=== PATIENT | female | born 1970 | race Hispanic/Latino ===

== ENCOUNTER 2020-01-01 10:14 | Emergency (ER) | payer SELFPAY ==
[2020-01-01 12:11] VITALS: BP 153/71
== END 2020-01-01 12:16 | disposition home or self-care (01) | DRG 392 ==
LOC: ED 10:14
DX: R13.10 Dysphagia, unspecified (principal)

== ENCOUNTER 2022-04-04 18:42 | Emergency (ER) | payer SELFPAY ==
[~2022-04-04] VITALS: Ht 144.8 cm; Wt 87.2 kg
[2022-04-04] MEDS ORDERED: NAPROXEN500 MG PO (21:38)
[2022-04-04 21:53] VITALS: BP 144/89
== END 2022-04-04 22:09 | disposition home or self-care (01) | DRG 554 ==
LOC: ED 18:42
DX: M19.09 Primary osteoarthritis, other specified site (principal)